=== PATIENT | female | born 1955 | race Caucasian/White ===

== ENCOUNTER 2017-03-01 08:03 | Day surgery (SDC) | payer BC ==
[~2017-03-01 08:03] MED LIST: Lactated Ringers 1,000 ML IV SCH; Lidocaine 2% 5 ML SDV ONE; Propofol 200 MG/20 ML SDV ONE; Sodium Chloride 0.9% 10 ML Syringe FLUSH PRN; Sodium Chloride 0.9% 2.5 ML Syringe FLUSH PRN
--- NOTE | 2017-03-01 09:01 | PCM.PREANE ---
Preanesthetic Assessment - Anesthesia/Transfusion/Family Hx Anesthesia History: Prior Anesthesia Without Reaction Other Type of Anesthesia Reaction Comment: REports "get sick post surgery", no known family hx prblms Transfusion History: No Prior Transfusion(s) - Review of Systems General: No Symptoms Pulmonary: No Symptoms Cardiovascular: No Symptoms Gastrointestinal: No symptoms Neurological: No Symptoms Other: Reports: None - Physical Assessment NPO Status Date: 02/28/17 NPO Status Time: 22:30 O2 Sat by Pulse Oximetry: 96 Respiratory Rate: 16 Vital Signs: Last Vital Signs Temp 36.3 C 03/01/17 08:08 Pulse 78 03/01/17 08:08 Resp 16 03/01/17 08:08 BP 177/78 H 03/01/17 08:08 Pulse Ox 96 03/01/17 08:08 Height: 1.63 m Weight: 122.47 kg ASA Class: 2 Mental Status: Alert & Oriented x3 Airway Class: Mallampati = 2 Dentition: Reports: Normal Dentition ROM/Head Extension: Full Lungs: Clear to auscultation, Normal respiratory effort Cardiovascular: Regular Rate, Regular Rhythm - Allergies Allergies/Adverse Reactions: Allergies Allergy/AdvReac Type Severity Reaction Status Date / Time hydrocodone Allergy Nausea and Verified 12/08/14 16:54 Vomiting - Anesthesia Plan Pre-Op Medication Ordered: None - Acknowledgements Anesthesia Type Planned: MAC Pt an Appropriate Candidate for the Planned Anesthesia: Yes Alternatives and Risks of Anesthesia Discussed w Pt/Guardian: Yes Pt/Guardian Understands and Agrees with Anesthesia Plan: Yes PreAnesthesia Questionnaire HEENT History: Reports: Other (See Below) Other HEENT History: wears glasses Cardiovascular History: Reports: Hypertension Gastrointestinal History: Reports: GERD Genitourinary History: Reports: None ORDER TAKER History: Reports: Other OB/BYN History: breast surgery Musculoskeletal History: Reports: Arthritis Endocrine/Metabolic History: Reports: Hypothyroidism, Obesity/BMI 30+ - Past Surgical History Head Surgeries/Procedures: Reports: None HEENT Surgical History: Reports: Tonsillectomy Female Surgical History: Reports: Breast Reduction, LEEP Musculoskeletal Surgical History: Reports: Other (See Below) Other Musculoskeletal Surgeries/Procedures:: foot surgery - SUBSTANCE USE Smoking Status *Q: Never Smoker Days Per Week of Alcohol Use: 0 Number of Drinks Per Day: 0 Total Drinks Per Week: 0 Recreational Drug Use History: No - HOME MEDS Home Medications: Home Meds Omeprazole [Prilosec] 40 mg PO BRK 12/08/14 [History] Methimazole [Tapazole] 5 mg PO DAILY 03/09/15 [History] Lisinopril 2.5 mg PO DAILY 02/24/17 [History] - CURRENT (IN HOUSE) MEDS Current Meds: Current Medications Lactated Ringer's (Ringers, Lactated) 1,000 mls @ 125 mls/hr IV ASDIRECTED ENRIQUE Last Admin: 03/01/17 08:20 Dose: 125 mls/hr Sodium Chloride (Saline Flush) 10 ml FLUSH ASDIRECTED PRN PRN Reason: Keep Vein Open Sodium Chloride (Saline Flush) 2.5 ml FLUSH ASDIRECTED PRN PRN Reason: Keep Vein Open Discontinued Medications Lidocaine (Xylocaine-Mpf 2%) Confirm Administered Dose 5 ml .ROUTE .STK-MED ONE Stop: 03/01/17 07:26 Propofol (Diprivan 20 Ml) Confirm Administered Dose 400 mg .ROUTE .STK-MED ONE Stop: 03/01/17 07:26
[2017-03-01] MEDS ORDERED: Propofol 200 MG/20 ML SDV ONE (09:46)
--- NOTE | 2017-03-01 10:04 | PCM.OPNOTE ---
- General Post-Op/Procedure Note Date of Surgery/Procedure: 03/01/17 Operative Procedure(s): Colonoscopy Findings: 1 ascending colon polyp, 1 sigmoid colon polyp, diverticulosis Pre Op Diagnosis: family history of colon cancer Post-Op Diagnosis: sigmoid and ascending colon polyp, diverticulosis [place] [facility] [place]geon: Grace Disla Condition: Good
--- NOTE | 2017-03-01 10:48 | PCM48HPAN ---
Post Anesthesia Note - EVALUATION WITHIN 48HRS OF ANESTHETIC Vital Signs in Normal Range: Yes Patient Participated in Evaluation: Yes Respiratory Function Stable: Yes Airway Patent: Yes Cardiovascular Function Stable: Yes Hydration Status Stable: Yes Pain Control Satisfactory: Yes Nausea and Vomiting Control Satisfactory: Yes Mental Status Recovered: Yes
--- NOTE | 2017-03-01 10:49 | PCM.POSTAN ---
POST ANESTHESIA ASSESSMENT - MENTAL STATUS Mental Status: alert, oriented - RESPIRATORY Respiratory Status: respiratory rate WNL, airway patent, O2 saturation stable - CARDIOVASCULAR CV Status: pulse rate WNL - GASTROINTESTINAL GI Status: no symptoms - POST OP HYDRATION Hydration Status: adequate & stable
[2017-03-01 11:28] VITALS: BP 113/60
--- NOTE | 2017-03-02 00:18 | OR ---
SURGEON: SUSAN WRAY MD DATE OF PROCEDURE: 03/01/2017 PREOPERATIVE DIAGNOSIS: Screening colonoscopy. POSTOPERATIVE DIAGNOSES: Diverticulosis, ascending colon polyp, sigmoid colon polyp. PROCEDURE PERFORMED: Screening colonoscopy. INSTRUMENT USED: Olympus colonoscope. ANESTHESIA: MAC. EXTENT OF EXAM: To the cecum. PREPARATION: Good. LIMITATIONS: None. INDICATION FOR EXAMINATION: The patient is a 62-year-old female, who presents for a screening colonoscopy. She has a family history of colon cancer. We discussed the procedure, expected perioperative course, and risks including bleeding, infection, and/or damage to surrounding structures, including perforation. The patient verbalized understanding and wishes to proceed. PROCEDURE IN DETAIL: The patient was brought into the endoscopy suite and placed in the left lateral decubitus position. A time-out was completed verifying the patient's name, age, date of , allergies, and procedure to be performed. Monitored anesthesia care was induced and continuous oxygen was provided via nasal cannula throughout the procedure. After adequate sedation was achieved, a digital rectal exam was performed. This examination was within normal limits. A well lubricated colonoscope was inserted in the rectum and advanced under direct visualization to the level of the cecum. The cecum was identified by both visual and anatomic landmarks. A photograph was taken of the cecal cap. Despite multiple attempts, I was unable to successfully retroflex the scope within the cecum. The scope was fully withdrawn while examining the color, texture, anatomy, and integrity of the mucosa from the cecum to the anal canal. The findings were that the patient had one ascending colon polyp and one sigmoid colon polyp. These were both 1-2 mm in size and sessile. They were removed with a cold biopsy forceps and sent to pathology. The patient was also noted to have diverticulosis within the sigmoid portion of her colon. The scope was then brought into the rectum and retroflexed to allow visualization of the anal canal opening. This appeared normal and a photograph was taken. The scope was straightened out and removed from the patient. The cecum to anus time was 18 minutes. The patient was then transferred to the recovery room in stable condition. ENDOSCOPIC DIAGNOSES: Diverticulosis, ascending colon polyp, sigmoid colon polyp. RECOMMENDATIONS: Follow up in clinic in 2 weeks. PHUONG NUNN /[id number]
== END 2017-03-01 10:47 | disposition home or self-care (01) ==
LOC: MW.SDS 08:03
PROVIDERS: ATTEND Surgery
PROC: 0DBK8ZZ Excision of Ascending Colon, Via Natural or Artificial Opening Endoscopic (ICD-10-PCS; principal; 2017-03-01)
PROC: 0DBN8ZZ Excision of Sigmoid Colon, Via Natural or Artificial Opening Endoscopic (ICD-10-PCS; 2017-03-01)
DX: Z12.11 Encounter for screening for malignant neoplasm of colon (principal); D12.2 Benign neoplasm of ascending colon; D12.5 Benign neoplasm of sigmoid colon; I10 Essential (primary) hypertension; K21.9 Gastro-esophageal reflux disease without esophagitis; M19.90 Unspecified osteoarthritis, unspecified site; E03.9 Hypothyroidism, unspecified; E66.9 Obesity, unspecified; Z88.5 Allergy status to narcotic agent; Z79.899 Other long term (current) drug therapy; Z98.890 Other specified postprocedural states; Z90.89 Acquired absence of other organs; Z68.43 Body mass index [BMI] 50.0-59.9, adult
CPT/HCPCS: 45380; J7120; 88305; J2704

== ENCOUNTER 2017-03-09 06:23 | Day surgery (SDC) | payer BC ==
[~2017-03-09 06:23] MED LIST changes: -Lidocaine 2% 5 ML SDV ONE; -Propofol 200 MG/20 ML SDV ONE; +ceFAZolin 2 GM in Premix Bag 1 BAG IV ONE
[2017-03-09] MEDS ORDERED: Bupivacaine 0.5% 10 ML SDV ONE (07:13)
--- NOTE | 2017-03-09 07:19 | PCM.PREANE ---
Preanesthetic Assessment - Anesthesia/Transfusion/Family Hx Anesthesia History: Prior Anesthesia Without Reaction Other Type of Anesthesia Reaction Comment: REports "get sick post surgery", no known family hx prblms Family History of Anesthesia Reaction: No Transfusion History: No Prior Transfusion(s) Intubation History: Unknown - Review of Systems General: No Symptoms Pulmonary: No Symptoms Cardiovascular: No Symptoms Gastrointestinal: No symptoms Neurological: No Symptoms Other: Reports: None - Physical Assessment NPO Status Date: 03/08/17 NPO Status Time: 23:30 O2 Sat by Pulse Oximetry: 98 Respiratory Rate: 16 Vital Signs: Last Vital Signs Temp 36.6 C 03/09/17 06:29 Pulse 71 03/09/17 06:29 Resp 16 03/09/17 06:29 BP 160/70 H 03/09/17 06:29 Pulse Ox 98 03/09/17 06:29 Height: 1.63 m Weight: 133.81 kg ASA Class: 2 Mental Status: Alert & Oriented x3 Airway Class: Mallampati = 2 Dentition: Reports: Normal Dentition Thyro-Mental Finger Breadths: 3 Mouth Opening Finger Breadths: 3 ROM/Head Extension: Full Lungs: Clear to auscultation, Normal respiratory effort Cardiovascular: Regular Rate, Regular Rhythm - Allergies Allergies/Adverse Reactions: Allergies Allergy/AdvReac Type Severity Reaction Status Date / Time hydrocodone Allergy Nausea and Verified 12/08/14 16:54 Vomiting - Blood Blood Available: No - Anesthesia Plan Pre-Op Medication Ordered: None - Acknowledgements Anesthesia Type Planned: MAC Pt an Appropriate Candidate for the Planned Anesthesia: Yes Alternatives and Risks of Anesthesia Discussed w Pt/Guardian: Yes Pt/Guardian Understands and Agrees with Anesthesia Plan: Yes PreAnesthesia Questionnaire HEENT History: Reports: Other (See Below) Other HEENT History: wears glasses Cardiovascular History: Reports: Hypertension Gastrointestinal History: Reports: GERD Genitourinary History: Reports: None PATIENT TRANSPORT OFFICER History: Reports: Musculoskeletal History: Reports: Arthritis Endocrine/Metabolic History: Reports: Obesity/BMI 30+, Other (See Below) (h/o hyperthyroidism) - Past Surgical History Head Surgeries/Procedures: Reports: None HEENT Surgical History: Reports: Tonsillectomy GI Surgical History: Reports: Colonoscopy (last week) Female Surgical History: Reports: Breast Reduction, LEEP, Other (See Below) Other Female Surgeries/Procedures: hx breast reduction Musculoskeletal Surgical History: Reports: Other (See Below) Other Musculoskeletal Surgeries/Procedures:: foot surgery - SUBSTANCE USE Smoking Status *Q: Never Smoker Days Per Week of Alcohol Use: 0 Number of Drinks Per Day: 0 Total Drinks Per Week: 0 Recreational Drug Use History: No - HOME MEDS Home Medications: Home Meds Omeprazole [Prilosec] 40 mg PO BRK 12/08/14 [History] Methimazole [Tapazole] 5 mg PO DAILY 03/09/15 [History] Lisinopril 2.5 mg PO DAILY 02/24/17 [History] - CURRENT (IN HOUSE) MEDS Current Meds: Current Medications Lactated Ringer's (Ringers, Lactated) 1,000 mls @ 125 mls/hr IV ASDIRECTED ENRIQUE Last Admin: 03/09/17 06:43 Dose: 125 mls/hr Sodium Chloride (Saline Flush) 10 ml FLUSH ASDIRECTED PRN PRN Reason: Keep Vein Open Sodium Chloride (Saline Flush) 2.5 ml FLUSH ASDIRECTED PRN PRN Reason: Keep Vein Open Discontinued Medications Cefazolin Sodium/Dextrose 2 gm (/ Premix) 50 mls @ 100 mls/hr IV ONETIME ONE Stop: 03/06/17 09:13
--- NOTE | 2017-03-09 07:37 | PCM.OPNOTE ---
- General Post-Op/Procedure Note Date of Surgery/Procedure: 03/09/17 Operative Procedure(s): excision of posterior neck sebacious cyst Findings: sebacious cyst of posterior neck Pre Op Diagnosis: sebacious cyst of posterior neck Post-Op Diagnosis: sebacious cyst of posterior neck Anesthesia Technique: MAC Primary Surgeon: Grace Disla Fluid Replacement, Intraop: 900 EBL in mLs: 5 Complications: None Condition: Good
[2017-03-09] MEDS ORDERED: Lidocaine 2% 5 ML SDV ONE (07:39)
[2017-03-09] MEDS ORDERED: Midazolam 1 MG/ML 2 ML SDV ONE (07:40)
[2017-03-09] MEDS ORDERED: Propofol 200 MG/20 ML SDV ONE (07:40)
[2017-03-09] MEDS ORDERED: fentaNYL 100 MCG/2 ML SDV ONE (07:40)
[2017-03-09] MEDS ORDERED: Ondansetron 4 MG/2 ML SDV ONE (07:43)
[2017-03-09] MEDS ORDERED: Lidocaine 1% with EPINEPHrine 1:100,000 20 ML MDV ONE (08:13)
[2017-03-09] MEDS ORDERED: Lidocaine 1% 20 ML MDV ONE (08:13)
[2017-03-09] MEDS ORDERED: Acetaminophen/oxyCODONE 325-5 MG Tab PO ONE (09:36)
--- NOTE | 2017-03-09 09:57 | PCM48HPAN ---
Post Anesthesia Note - EVALUATION WITHIN 48HRS OF ANESTHETIC Vital Signs in Normal Range: Yes Patient Participated in Evaluation: Yes Respiratory Function Stable: Yes Airway Patent: Yes Cardiovascular Function Stable: Yes Hydration Status Stable: Yes Pain Control Satisfactory: Yes Nausea and Vomiting Control Satisfactory: Yes Mental Status Recovered: Yes - COMMENTS/OBSERVATIONS Free Text/Narrative:: patient skipped recovery room phase of postoperative care.
[2017-03-09 10:01] VITALS: BP 131/64
--- NOTE | 2017-03-10 12:00 | OR ---
SURGEON: SUSAN WRAY MD DATE OF PROCEDURE: 03/09/2017 PREOPERATIVE DIAGNOSIS: Posterior neck sebaceous cyst. POSTOPERATIVE DIAGNOSIS: Posterior neck sebaceous cyst. PROCEDURE PERFORMED: Excision of posterior neck sebaceous cyst. INTERNATIONAL FREIGHT FORWARDER: Dr. Tono Del Angel, vice president of marketing. FLUIDS: 900 mL. ESTIMATED BLOOD LOSS: 10 mL. FINDINGS: A 3 cm sebaceous cyst along the posterior aspect of the neck. This was slightly left of midline. COMPLICATIONS: None. INDICATIONS: The patient is a 62-year-old female, who presents with a mass along the back side of her neck. The patient states that this has been infected several times and ruptured. Afterwards, it healed but then returns. The patient would like to have it removed. The patient and I discussed excision of this mass in the operating room due to its location. We discussed the procedure as well as the risks including bleeding, infection, or damage to surrounding structures. The patient verbalized understanding and wishes to proceed. PROCEDURE IN DETAIL: The patient was brought into the operating room and placed on the OR table in right lateral decubitus position. A time-out was completed verifying the patient's name, age, date of , allergies, and procedure to be performed. Monitored anesthesia care was induced and the posterior neck and upper back were prepped and draped in the usual standard fashion. I anesthetized the area around the mass with 1% lidocaine plain. After adequate anesthesia, a local anesthesia had been achieved, and a 3 cm elliptical incision was made around the central pit that overlaid the mass. I then used cautery to dissect down through the skin into the subcutaneous fat. Once I got into the subcutaneous fat, I used a tenotomy scissors to dissect the cyst wall free from surrounding structures. Once this was completely removed from the surrounding subcutaneous tissues, I sent to pathology labeled as back sebaceous cyst. Hemostasis was then achieved using cautery. I irrigated the wound copiously with normal saline. The wound was closed with interrupted Vicryl within the subcutaneous fat and a running 4-0 Monocryl suture in the subcuticular space. Steri-Strips and sterile dressings were applied. The patient tolerated the procedure well with no immediate complications. All counts were complete and correct at the end of the case. PHUONG / EDOUARD /[id number]
== END 2017-03-09 10:01 | disposition home or self-care (01) ==
LOC: MW.SDS 06:23
PROVIDERS: ATTEND Surgery
DX: L72.3 Sebaceous cyst (principal); I10 Essential (primary) hypertension; E03.9 Hypothyroidism, unspecified; Z79.899 Other long term (current) drug therapy; Z88.5 Allergy status to narcotic agent; Z98.890 Other specified postprocedural states
CPT/HCPCS: 21555; 88304; J0690; J2250; J2405; J3010; J7120; 00300; J2704